=== PATIENT | female | born 1950 | race Caucasian/White ===

== ENCOUNTER 2018-04-11 06:25 | Inpatient (IN) ==
[2018-04-11] MEDS: Ondansetron 4 MG/2 ML VIAL IVP PRN ×2 (12:52→19:58)
[2018-04-11] MEDS ORDERED: *HR* Promethazine 25 MG/ML VIAL IM ONE (13:42)
[2018-04-11] MEDS ORDERED: Naloxone 0.4 MG/ML INJ IVP PRN (13:43)
--- NOTE | 2018-04-11 14:26 | Internal Med History&Physical ---
<Ramiro Anna P - Last Filed: 04/11/18 14:31> Date of Encounter: 04/11/18 Time of Encounter: 13:15 Internal Medicine - H&P: HPI Chief complaint: Nausea/Vomiting Admitted From: Home Plans for Post Hospital Care: Home History of present illness: Ms. Oates is a 67 year old female with past medical history significant for spina bifida, urostomy, hypertension, DVT, PE, and back surgery who presents for complaints of nausea and vomiting since 04/08/2018. She was transferred from [facility] secondary to nausea and vomiting with abnormal urinalysis and CT of abdomen/pelvis. Transfer documentation was reviewed. PO intake makes symptoms worse and NPO improves. No current treatment at home. Also complains of chills (reports highest home temperature "100 point something") and decreased urostomy output with foul smelling urine. Denies diarrhea, sick contacts, chest pain, shortness of breath, abdominal pain, or CVA tenderness. Follows regularly with Dr [facility]ino[facility] last visit was after ER discharge for acute cystitis in December 2017. [facility] Dr Palomino arranged additional follow up with [facility] for 04/19/2018. Last INR check was Thursday04/05/2018 and was therapeutic per patient. Has history of swelling of bilateral lower extremities but reports her compression stockings and medication continues to well control her edema. Past Med Surg Social Fam HX - Past Medical History Medical history: DVT, hypertension, pulmonary embolus, other Additional medical history: spina bifida, urostomy, phlebitis Psychiatric history: depression - Past Surgical History Additional surgical history: back surgery x3, urostomy placed - Social History Smoking Status: Never smoker Alcohol use: none Drug use: none Internal Medicine - H&P: Meds RX: Gabapentin [Neurontin] 300 mg PO TID 09/03/15 [History] Lotrel 5-40 mg Capsule 1 cap PO DAILY 04/12/18 [History] RX: Diphenoxylate/Atropine [Lomotil 2.5 mg/0.025 mg] 1 tab PO QID PRN 04/12/18 [History] RX: Ibuprofen [Motrin] 800 mg PO TID 04/12/18 [History] RX: Methocarbamol [Robaxin] 750 mg PO TID PRN 04/12/18 [History] RX: Warfarin [Coumadin] 2.5 mg PO 1800 04/12/18 [History] RX: Lisinopril [Zestril] 40 mg PO DAILY 30 Days #30 tablet 04/15/18 [Rx] RX: amLODIPine [Norvasc] 5 mg PO DAILY 30 Days #30 tablet 04/15/18 [Rx] RX: cephALEXin [Keflex] 500 mg PO BID 6 Days #12 capsule 04/16/18 [Rx] Sucralfate [Carafate] 1 gm PO QID 30 Days #120 b 04/16/18 [Rx] Sucralfate [Carafate] 1 gm PO QIDAC 30 Days #120 tablet 04/16/18 [Rx] Allergy/AdvReac Type Severity Reaction Status Date / Time Hydromorphone [From Dilaudid] AdvReac Vomiting Verified 09/03/15 15:27 Sulfa (Sulfonamide AdvReac Nausea Verified 09/03/15 15:27 Antibiotics) All Systems PM: A 10-system review of systems was performed and is negative for pertinent findings except as documented above in the HPI. - Constitutional Vitals: Temp Pulse Resp BP Pulse Ox 98.7 F 78 16 151/78 95 04/11/18 08:40 04/11/18 08:40 04/11/18 08:40 04/11/18 08:40 04/11/18 08:40 Exam: General: Alert and oriented. Skin:Normal color, no rash, no lesions. Urostomy noted to right abdomen. HEENT:Pupils equal, round and reactive. Cardiovascular:Normal S1 & S2, no rubs, murmurs or gallops. No JVD. Pulse regular. Lungs:Normal breath sounds, no wheezes or crackles. Abdomen:Soft, non-tender, no rigidity. Extremities:No deformity, no edema or tenderness, no joint swelling or clubbing. Compression stockings to bilateral lower extremities. Neurological:Normal cognition and motor skills. Pulses:Carotid and radial pulses normal +2. No CVA tenderness. Rest of the physical exam is non contributory. - Assessment and plan (1) Nausea & vomiting Status: Acute Assessment and plan: Zofran as needed. NPO except medications, progress diet as tolerated. MIVF ordered at 75ml/hr. Qualifiers: Vomiting type: unspecified Vomiting Intractability: non-intractable Qualified Code(s): R11.2 - Nausea with vomiting, unspecified (2) Urinary tract infection Status: Chronic Assessment and plan: Suspected acute on chronic UTI with large leukocyte esterase, positive nitrites, large blood, >100 WBC accompanied by reported decreased foul smelling output. Urine culture pending. Rocephin received in [facility] ER. Will continue same. Qualifiers: Urinary tract infection type: site unspecified Hematuria presence: with hematuria Qualified Code(s): N39.0 - Urinary tract infection, site not specified (3) Supratherapeutic INR Status: Acute Assessment and plan: Hold coumadin. Repeat labs in a.m. (4) Abnormal computed tomography of abdomen and pelvis Status: Acute Assessment and plan: CT abdomen/pelvis from [facility] shows possible pancreatitis but no abdominal pain or elevated lipase. Also reports bilateral hydronephrosis with two 2mm uretal stones on right side and 2cm right renal cyst. Previous CT from December 2017 shows bilateral nephrolithiasis and single 3mm right uretal stone, similar concernings for pancreatitis, and RLQ parastomal hernia. Urology consulted and advised of CT findings. Will see tomorrow morning. - Time Spent With Patient Total time spent is greater than 50% in coordination of care (as documented) at patient's floor/unit and/or counseling patient: - VTE Reasons for not Prescribing Prophylaxis: Not indicated-Anticoagulated or INR therapeutic <Ro Liu - Last Filed: 04/19/18 08:08> Internal Medicine - H&P: HPI History of present illness: Ms. Oates is a 67 year old female All Systems PM: A 10-system review of systems was performed and is negative for pertinent findings except as documented above in the HPI. - Constitutional Vitals: Temp Pulse Resp BP Pulse Ox 98.3 F 86 14 120/76 95 04/16/18 11:34 04/16/18 11:34 04/16/18 11:34 04/16/18 11:34 04/16/18 11:34 Internal Med - H&P Results - Labs CBC & Chem 7: 04/16/18 05:44 04/16/18 05:44 - Impressions ITS Impressions Abdomen MRI 04/15/18 11:39 IMPRESSION: 1. Technically limited secondary to artifact from patient's extensive spinal hardware and body habitus. 2. Mild bilateral hydronephrosis of unclear etiology. 3. Mild common bile duct dilatation up to 9 mm. No choledocholithiasis. Findings are favored to be related to post cholecystectomy state. 4. Right lower quadrant ostomy is partially visualized with parastomal hernia containing bowel. No obvious obstruction. D/ / 04/15/2018 17:50:38 Lorri Haro MD / Sangeetha Wells Interpreting Provider: Lorri Haro MD - Assessment and plan (1) Nausea & vomiting Status: Resolved Qualifiers: Vomiting type: unspecified Vomiting Intractability: non-intractable Qualified Code(s): R11.2 - Nausea with vomiting, unspecified (2) Urinary tract infection Status: Chronic Qualifiers: Urinary tract infection type: acute cystitis Hematuria presence: without hematuria Qualified Code(s): N30.00 - Acute cystitis without hematuria (3) Supratherapeutic INR Status: Resolved (4) Abnormal computed tomography of abdomen and pelvis Status: Acute (5) History of pulmonary embolism Status: Chronic (6) Spina bifida Status: Chronic Qualifiers: Spinal region: unspecified Presence of hydrocephalus: without hydrocephalus Qualified Code(s): Q05.9 - Spina bifida, unspecified (7) Hypertension Status: Chronic Qualifiers: Hypertension type: essential hypertension Qualified Code(s): I10 - Esse ntial (primary) hypertension (8) Hypokalemia Status: Resolved - Time Spent With Patient Total time spent is greater than 50% in coordination of care (as documented) at patient's floor/unit and/or counseling patient: - Attending Attestation I personally and independently interviewed and examined the patient , and I reviewed the patient's medical record . I am in agreement with proposed assessment and proposed treatment plan. I discussed my findings and recommendation with the patient and answer his questions. The patient's medical records were edited to accurately reflect this encounter.
[2018-04-11] MEDS ORDERED: *HR* Promethazine 25 MG/ML VIAL IVP ONE (14:27)
[2018-04-11] MEDS ORDERED: Acetaminophen 325 MG TABLET PO ONE (14:29)
[2018-04-11] MEDS: 0.9 % Sodium Chloride 1,000 ML IVC SCH (17:21)
[2018-04-12] MEDS: 0.9 % Sodium Chloride 1,000 ML IVC SCH ×3 (05:31→21:28)
[2018-04-12 06:53] LABS: Basophils % 0.5 %; Eosinophils % 0.3 %; Hematocrit 36.8 % (35.3-44.9); Hemoglobin 12.2 g/dL (11.5-15.4); Immature Granulocytes % 0.3 % (0-4); Lymphocytes # 1.3 K/mcL (0.6-4.6); Lymphocytes % 17.5 %; Mean Corpuscular HGB Conc 33.2 g/dL (31.6-35.5); Mean Corpuscular Hemoglobin 29.5 pg (28.0-33.3); Mean Corpuscular Volume 88.9 fL (83.0-100.0); Mean Platelet Volume 9.8 fL (9.4-12.4); Monocytes # 0.6 K/mcL (0.0-1.3); Monocytes % 8.5 %; Neutrophils # 5.4 K/mcL (1.6-8.9); Platelet Count 193 K/mcL (140-400); Red Blood Count 4.14 M/mcL (3.82-4.97); Red Cell Distribution Width 13.1 % (11.5-14.5); Segmented Neutrophils % 72.9 %
[2018-04-12 07:00] LABS: INR 3.3; Prothrombin Time 37.7 Seconds (9.4-12.1)
[2018-04-12 07:50] LABS: BUN/Creatinine Ratio 21 (6-26); Blood Urea Nitrogen 13 mg/dL (8-23); Calcium 8.5 mg/dL (8.6-10.3); Carbon Dioxide 22 mEq/L (23-29); Chloride 109 mEq/L (98-107); Glucose 91 mg/dL (70-105); Osmolality,Calculated 294 (280-300); Potassium 3.1 mEq/L (3.5-5.1); Sodium 142 mEq/L (136-145); eGFR For Non-African Americans > 60 (> 60)
[2018-04-12] MEDS: Ondansetron 4 MG/2 ML VIAL IVP PRN (08:54)
--- NOTE | 2018-04-12 09:14 | Internal Med Progress Note ---
Hospitalist Progress Note - Encounter Date of Encounter: 04/12/18 Time of Encounter: 09:07 - Subjective Interval History: Patient with history of spina bifida, urostomy, hypertension, DVT and pulmonary embolism patient usually a follow-up with Dr. Palomino the urologist. Patient wasl transfer from [facility] due to nausea and vomiting since worse with the by mouth intake also has decrease urine output from the urostomy with smelly urine consistent with a UTI patient also has some mild epigastric pain has CT of the abdomen suggestive of pancreatitis but l iipase and amylase was normal also the CT scan shows a bilateral hydronephrosis with a kidney stone patient awaiting urology evaluation today 04/12 fu follow-up evaluation today patient nausea and vomiting has subsided with Zofran no fever or chills white count is normal awaiting urology consult evaluation. Patient says in the past she was told she has pancreatitis but follow-up did not comfirm pancreatitis in the past as well - Exam Vitals: Temp Pulse Resp BP Pulse Ox 98.1 F 74 14 116/67 93 04/12/18 05:15 04/12/18 05:15 04/12/18 05:15 04/12/18 05:15 04/12/18 05:15 Exam: General: Alert and oriented. Skin:Normal color, no rash, no lesions. Urostomy noted to right abdomen. HEENT:Pupils equal, round and reactive. Cardiovascular:Normal S1 & S2, no rubs, murmurs or gallops. No JVD. Pulse regular. Lungs:Normal breath sounds, no wheezes or crackles. Abdomen:Soft, non-tender, no rigidity. Extremities:No deformity, no edema or tenderness, no joint swelling or clubbing. Compression stockings to bilateral lower extremities. Neurological:Normal cognition and motor skills. Pulses:Carotid and radial pulses normal +2. No CVA tenderness. Rest of the physical exam is non contributory. - Assessment and Plan (1) Nausea & vomiting Current Visit: Yes Status: Acute Assessment and Plan: Nausea and vomiting since has subsided date with the Zofran T of abdomen suggestive of pancreatitis that normal lipase and amylase we will repeat lipase today stat and consult GI for further evaluation May need to consider EGD (2) Urinary tract infection Current Visit: Yes Status: Chronic Assessment and Plan: Patient started on Rocephin cultures pending denies any fever or chills (3) Supratherapeutic INR Current Visit: Yes Status: Acute Assessment and Plan: INR today 3.3 will hold l Coumadin for today as well (4) Abnormal computed tomography of abdomen and pelvis Current Visit: Yes Status: Acute Assessment and Plan: CT of the abdomen suggestive of pancreatitis s which has been evaluated in the past Recheck lipase in their consult GI for further evaluation (5) PE (pulmonary thromboembolism) Current Visit: No Status: Chronic Assessment and Plan: Patient on Coumadin - Time Spent with Patient Total time spent is greater than 50% in coordination of care (as documented) at patient's floor/unit and/or counseling patient: Internal Medicine: Result - Labs CBC & Chem 7: 04/12/18 06:14 04/12/18 06:14 Labs: Short CBC 04/12/18 Range/Units 06:14 WBC 7.4 (4.3-11.1) K/mcL Hgb 12.2 (11.5-15.4) g/dL Hct 36.8 (35.3-44.9) % Plt Count 193 (140-400) K/mcL Neutrophils # 5.4 (1.6-8.9) K/mcL BMP 04/12/18 06:14 Sodium 142 Potassium 3.1 L Chloride 109 H Carbon Dioxide 22 L BUN 13 Creatinine 0.62 Glucose 91 Calcium 8.5 L - ABG Interpretation ABG results: PT/INR, D-dimer PT 37.7 Seconds (9.4-12.1) H 04/12/18 06:14 - VTE Reasons for not Prescribing Prophylaxis: Not indicated-Anticoagulated or INR therapeutic Consult Discharge Plan - Plan Referrals: Cecil Cancino DO [Primary Care Provider] - (1) Nausea & vomiting Qualifiers: Vomiting type: unspecified Vomiting Intractability: non-intractable Qualified Code(s): R11.2 - Nausea with vomiting, unspecified (2) Urinary tract infection Qualifiers: Urinary tract infection type: site unspecified Hematuria presence: with hematuria Qualified Code(s): N39.0 - Urinary tract infection, site not specified; R31.9 - Hematuria, unspecified
[2018-04-12 09:21] LABS: Lipase 7 Units/L (11-82)
[2018-04-12] MEDS: cefTRIAXone 1,000 MG in Water for inj. (sterile) 20 ML 10 ML IVP SCH (09:45)
[2018-04-12] MEDS: *HR* Promethazine 25 MG/ML VIAL IVP PRN ×2 (13:36→21:49)
[2018-04-12] MEDS ORDERED: 0.9 % Sodium Chloride 1,000 ML ONE (18:55)
--- NOTE | 2018-04-12 19:15 | Urology Progress Note ---
Date of Encounter: 04/12/18 Time of Encounter: 19:13 - Assessment and Plan (1) History of urinary diversion procedure Current Visit: Yes Status: Chronic Assessment and plan: Status post diversion for spina bifida with neurogenic bladder. The patient's urostomy is complicated by a large parastomal hernia and questions of potential partial obstruction of the right distal ureter. Patient has been referred by my partner to [facility] for evaluation and potential surgical address of ileoureteral anastomosis and parastomal hernia if deemed necessary. Plan: Keep [facility] urology referral appointment scheduled for next Thursday. (2) Hydronephrosis Current Visit: Yes Status: Chronic Assessment and plan: CT and loopogram images reviewed. Patient with moderate right hydro-and mild left [place]. It is unclear whether this is normal hydro-post incontinent urinary diversion or if the patient has some degree of obstruction on the right side. No indications for urgent urologic intervention. Plan: Keep [facility] referral made by Dr. Palomino for urologic evaluation as scheduled for thursday. Qualifiers: Qualified Code(s): N13.30 - Unspecified hydronephrosis (3) Urinary tract infection Current Visit: Yes Status: Chronic Assessment and plan: Complicated by urinary diversion. Patient is not toxic. No need for urgent urologic intervention. Plan: Antibiotic adjustment per culture result. Keep second opinion urology appointment with [facility] as scheduled for thursday. Follow-up with Dr. Palomino post [facility] second opinion. Qualifiers: Urinary tract infection type: acute cystitis Hematuria presence: without hematuria Qualified Code(s): N30.00 - Acute cystitis without hematuria Progress Note Subjective: still having pain, nausea, vomiting Objective Initial Vital Signs Temp Pulse Resp BP Pulse Ox 98.7 F 78 16 151/78 95 04/11/18 08:40 04/11/18 08:40 04/11/18 08:40 04/11/18 08:40 04/11/18 08:40 - General physical appearance Present: well developed, well nourished, no distress - Respiratory Present: normal respiratory effort - Abdomen Present: soft, non tender - Integumentary Present: no rash, no abnormal pigmentation - Musculoskeletal Present: normal gait, normal posture - Psychiatric Present: oriented to time, oriented to person, oriented to place - Labs 04/12/18 06:14 04/12/18 06:14 Diabetes panel 04/12/18 Range/Units 06:14 Sodium 142 (136-145) mEq/L Potassium 3.1 L (3.5-5.1) mEq/L Chloride 109 H (98-107) mEq/L Carbon Dioxide 22 L (23-29) mEq/L BUN 13 (8-23) mg/dL Creatinine 0.62 (0.60-1.20) mg/dL Glucose 91 (70-105) mg/dL Calcium 8.5 L (8.6-10.3) mg/dL Calcium panel 04/12/18 Range/Units 06:14 Calcium 8.5 L (8.6-10.3) mg/dL Pituitary panel 04/12/18 Range/Units 06:14 Sodium 142 (136-145) mEq/L Potassium 3.1 L (3.5-5.1) mEq/L Chloride 109 H (98-107) mEq/L Carbon Dioxide 22 L (23-29) mEq/L BUN 13 (8-23) mg/dL Creatinine 0.62 (0.60-1.20) mg/dL Glucose 91 (70-105) mg/dL Calcium 8.5 L (8.6-10.3) mg/dL Adrenal panel 04/12/18 Range/Units 06:14 Sodium 142 (136-145) mEq/L Potassium 3.1 L (3.5-5.1) mEq/L Chloride 109 H (98-107) mEq/L Carbon Dioxide 22 L (23-29) mEq/L BUN 13 (8-23) mg/dL Creatinine 0.62 (0.60-1.20) mg/dL Glucose 91 (70-105) mg/dL Calcium 8.5 L (8.6-10.3) mg/dL - Imaging CT scan - abdomen: image reviewed CT scan - pelvis: image reviewed - VTE Reasons for not Prescribing Prophylaxis: Not indicated-Anticoagulated or INR therapeutic Consult Discharge Plan - Plan Referrals: Cecil Cancino DO [Primary Care Provider] -
[2018-04-13] MEDS: Ondansetron 4 MG/2 ML VIAL IVP PRN (02:11)
[2018-04-13] MEDS: Acetaminophen 325 MG TABLET PO PRN (02:11)
[2018-04-13] MEDS: cefTRIAXone 1,000 MG in Water for inj. (sterile) 20 ML 10 ML IVP SCH (08:13)
[2018-04-13] MEDS: 0.9 % Sodium Chloride 1,000 ML IVC SCH (08:16)
[2018-04-13 08:27] LABS: BUN/Creatinine Ratio 22 (6-26); Blood Urea Nitrogen 13 mg/dL (8-23); Calcium 8.7 mg/dL (8.6-10.3); Carbon Dioxide 23 mEq/L (23-29); Chloride 107 mEq/L (98-107); Glucose 95 mg/dL (70-105); Osmolality,Calculated 288 (280-300); Potassium 3.3 mEq/L (3.5-5.1); Sodium 139 mEq/L (136-145); eGFR For Non-African Americans > 60 (> 60)
--- NOTE | 2018-04-13 08:27 | Internal Med Progress Note ---
<El Mcrae S - Last Filed: 04/13/18 11:00> Hospitalist Progress Note - Encounter Date of Encounter: 04/13/18 Time of Encounter: 08:23 - Subjective Interval History: Pt presented to [facility] ER and was transferred here for c/o nausea and vomiting since 04/08 -states that she had abd pain associated with dry heaving - had poor PO intake, was unable to keep anything down Of note the pt has a hx of spina bifida and had sx for neurogenic bladder -follows up with Dr Palomino outmora and has [facility] apt on Thursday Today the pt has no new concerns. She is still nauseated and feels like she will throw up if she eats/drinks anything. She denies abd pain, diarrhea, chest pain, or SOB. - Exam Vitals: Temp Pulse Resp BP Pulse Ox 97.8 F 95 15 138/73 91 04/13/18 03:19 04/13/18 03:19 04/13/18 03:19 04/13/18 03:19 04/13/18 03:19 Exam: General: Alert and oriented. HEENT: Normocephalic atraumatic , mucous membranes moist Cardiovascular: Normal S1 & S2, no rubs, murmurs or gallops. No JVD. Pulse regular. Lungs:Normal breath sounds, no wheezes or crackles. Abdomen:Soft, non-tender, no rigidity. Urostomy on the right abdomen. Extremities: No deformity, no edema or tenderness, no joint swelling or clubbing. Compression stockings to bilateral lower extremities. Skin: Normal color, no rash, no lesions. - Assessment and Plan (1) Nausea & vomiting Current Visit: Yes Status: Acute Assessment and Plan: Pt presented to [facility] ER and was transferred here for c/o nausea and vomiting since 04/08 -states that she had abd pain associated with dry heaving - had poor PO intake, was unable to keep anything down Lipase 7, pancreatitis unlikely CT in December showed stranding within the right upper quadrant adjacent to the pancreatic head and second portion of the duodenum, which could reflect acute pancreatitis versus duodenitis/peptic ulcer disease Plan: - zofran and phenergan prn nausea - begin CLD starting today , progress diet as tolerated - 75cc/hr 0.9% NS - plan to d/c pending EGD and if pt can tolerate PO intake - GI consulted, they plan to EGD her tomorrow NPO at midnight PT/INR in the morning (2) Urinary tract infection Current Visit: Yes Status: Chronic Assessment and Plan: Suspected acute on chronic UTI UA showed leukocyte esterase, (+) nitrites, (+) blood, TNTC WBC, 15-30 RBC Plan: - continue rocephin day 2 - urine cx pending - dispo: d/c pending EGD and tolerating PO intake (3) Supratherapeutic INR Current Visit: Yes Status: Acute Assessment and Plan: PT 37.7, INR 3.3 Plan: - coumadin held - morning labs pending (4) Abnormal computed tomography of abdomen and pelvis Current Visit: Yes Status: Acute Assessment and Plan: CT abdomen/pelvis from [facility] showed - possible pancreatitis, pt denies abd pain and lipase is 7 - bilat hydronephrosis , 2mm ureteral stones on right side and 2cm right renal cyst CT 12/2017 - showed bilat nephrolithiasis - single 3mm right ureteral stone - RLQ parastomal hernia Plan: - urology following, no urgent intervention required - pt has urology outpt follow up at [facility] on Thursday (5) History of pulmonary embolism Current Visit: No Status: Chronic Assessment and Plan: Chronic On coumadin, but currently held 2/2 supratheraputic INR (6) Spina bifida Current Visit: No Status: Chronic Assessment and Plan: Chronic (7) Hypertension Current Visit: No Status: Chronic Assessment and Plan: On lotrel BP 138/73 -well controlled (8) Hypokalemia Current Visit: Yes Status: Acute Assessment and Plan: Potassium 3.1 on admission, likely secondary to vomiting - replaced with PO K chloride - check electrolytes in AM - Time Spent with Patient Total time spent is greater than 50% in coordination of care (as documented) at patient's floor/unit and/or counseling patient: less than 15 minutes Plan of Care Discussed with: patient Internal Medicine: Result - Labs CBC & Chem 7: 04/12/18 06:14 04/13/18 07:51 Labs: BMP 04/12/18 06:14 Sodium 142 Potassium 3.1 L Chloride 109 H Carbon Dioxide 22 L BUN 13 Creatinine 0.62 Glucose 91 Calcium 8.5 L - ABG Interpretation ABG results: PT/INR, D-dimer PT 37.7 Seconds (9.4-12.1) H 04/12/18 06:14 - VTE Reasons for not Prescribing Prophylaxis: Not indicated-Anticoagulated or INR therapeutic Consult Discharge Plan - Plan Referrals: Cecil Cancino DO [Primary Care Provider] - <Pavel Jj - Last Filed: 04/13/18 16:58> Hospitalist Progress Note - Exam Vitals: Temp Pulse Resp BP Pulse Ox 98.5 F 77 14 105/68 94 04/13/18 15:00 04/13/18 15:00 04/13/18 15:00 04/13/18 15:00 04/13/18 15:00 - Assessment and Plan (1) Nausea & vomiting Current Visit: Yes Status: Acute (2) Urinary tract infection Current Visit: Yes Status: Chronic (3) Supratherapeutic INR Current Visit: Yes Status: Acute (4) Abnormal computed tomography of abdomen and pelvis Current Visit: Yes Status: Acute (5) History of pulmonary embolism Current Visit: No Status: Chronic (6) Spina bifida Current Visit: No Status: Chronic (7) Hypertension Current Visit: No Status: Chronic (8) Hypokalemia Current Visit: Yes Status: Acute - Time Spent with Patient Total time spent is greater than 50% in coordination of care (as documented) at patient's floor/unit and/or counseling patient: Internal Medicine: Result - Labs CBC & Chem 7: 04/12/18 06:14 04/13/18 12:11 Labs: BMP 04/13/18 04/13/18 07:51 12:11 Sodium 139 Potassium 3.3 L 3.0 L Chloride 107 Carbon Dioxide 23 BUN 13 Creatinine 0.58 L Glucose 95 Calcium 8.7 - ABG Interpretation ABG results: PT/INR, D-dimer PT 27.4 Seconds (9.4-12.1) H 04/13/18 12:11 - Attending Attestation I examined this patient and my medical decision-making was reviewed with the Resident Physician. I agree with the documented findings, disposition and treatment plan as described except to the extent set forth below. Plan for EGD tomorrow. Repeat INR 2.4 today at 12:00. Will repeat INR tonight to see if patient needs reversal of INR or not to get INR down prior to EGD. With history of DVT/PE will try to avoid giving Vit K if possible. <El Mcrae - Last Filed: 04/13/18 11:00> (1) Nausea & vomiting Qualifiers: Vomiting type: unspecified Vomiting Intractability: non-intractable Qualified Code(s): R11.2 - Nausea with vomiting, unspecified (2) Urinary tract infection Qualifiers: Urinary tract infection type: acute cystitis Hematuria presence: without hematuria Qualified Code(s): N30.00 - Acute cystitis without hematuria (6) Spina bifida Qualifiers: Spinal region: unspecified Presence of hydrocephalus: without hydrocephalus Qualified Code(s): Q05.9 - Spina bifida, unspecified (7) Hypertension Qualifiers: Hypertension type: essential hypertension Qualified Code(s): I10 - Essential (primary) hypertension <Pavel Jj - Last Filed: 04/13/18 16:58> (1) Nausea & vomiting Qualifiers: Vomiting type: unspecified Vomiting Intractability: non-intractable Qualifi ed Code(s): R11.2 - Nausea with vomiting, unspecified (2) Urinary tract infection Qualifiers: Urinary tract infection type: acute cystitis Hematuria presence: without hematuria Qualified Code(s): N30.00 - Acute cystitis without hematuria (6) Spina bifida Qualifiers: Spinal region: unspecified Presence of hydrocephalus: without hydrocephalus Qualified Code(s): Q05.9 - Spina bifida, unspecified (7) Hypertension Qualifiers: Hypertension type: essential hypertension Qualified Code(s): I10 - Essential (primary) hypertension
[2018-04-13] MEDS ORDERED: Diphenoxylate/Atropine 1 TAB TABLET PO PRN (11:13)
--- NOTE | 2018-04-13 11:24 | Gastroenterology Consult Note ---
<YarbroughJose Luis Kenisha - Last Filed: 04/13/18 10:24> Date of Encounter: 04/13/18 Time of Encounter: 09:50 - Assessment and plan (1) Nausea & vomiting Current Visit: Yes Status: Acute Assessment and plan: CT A/P at [facility] with possible pancreatitis. Lipase 7 on admission here. Patient presented to the ED in December [address] A/P at that time showed stranding within the right upper quadrant adjacent to the pancreatic head and second portion of the duodenum, which could reflect acute pancreatitis versus duodenitis/peptic ulcer disease. 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 Plan for EGD tomorrow to rule out esophagitis, gastritis, duodenitis, PUD. Continue clear liquid diet today. NPO at midnight. Continue antiemetics. Qualifiers: Vomiting type: unspecified Vomiting Intractability: non-intractable Qualified Code(s): R11.2 - Nausea with vomiting, unspecified (2) Supratherapeutic INR Current Visit: Yes Status: Acute Assessment and plan: INR 3.3 yesterday. Check PT/INR today. Will need to INR less than 1.5 for EGD tomorrow. - Time Spent With Patient Total time spent is greater than 50% in coordination of care (as documented) at patient's floor/unit and/or counseling patient: GI History of Present Illness - Data of Consult Patient: new to practice Consult date: 04/13/18 Requesting Physician: Gideon Arnett MD - Consult Narrative Reason for consult: Nausea, vomiting, ?pancreatitis History of present illness: Ms. Oates is a 67 year old female with PMHx of DVT, HTN, PE, spina bifida, urostomy who presented to [facility] with complaints of nausea and vomiting since 04/08. She was transferred from [facility] with nausea, vomiting, abnormal urinalysis, and CT A/P. Oral intake worsens symptoms, and NPO improves. She denies chills, chest pain, shortness of breath, abdominal pain, diarrhea. CT A/P at [facility] showed possible pancreatitis, but she denies any abdominal pain and li pase was 7 on admission here. In December the patient had abdominal pain and CT A/P on 01/19/2018 showed stranding within the right upper quadrant adjacent to the pancreatic head and second portion of the duodenum, which could reflect acute pancreatitis in the appropriate clinical setting versus duodenitis/peptic ulcer disease. 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 Procedures: None NSAIDs: Motrin Anticoagulation: Coumadin Past Med Surg Social Fam HX - Past Medical History Medical history: DVT, hypertension, pulmonary embolus, other Additional medical history: spina bifida, urostomy, phlebitis Psychiatric history: depression - Past Surgical History Additional surgical history: back surgery x3, urostomy placed - Social History Smoking Status: Never smoker Alcohol use: none Drug use: none - Gastrointestinal Gastrointestinal: Present: as per HPI - Constitutional Constitutional: as per HPI - EENT Eyes: as per HPI Ears: Present: as per HPI Nose, mouth and throat: Present: as per HPI - Cardiovascular Cardiovascular ROS: Present: as per HPI - Respiratory Respiratory IM: Present: as per HPI - Genitourinary Genitourinary: Absent: change in color, Urinary frequency - Neurological ROS Neurological GI: Present: as per HPI - Hematologic/Lymphatic Hematologic/Lymphatic pediatric: Present: as per HPI - Musculoskeletal Musculoskeletal ROS GI: Present: as per HPI - Integumentary Integumentary GI: Present: as per HPI - Psychiatric ROS Psychiatric GI: Present: as per HPI - Endocrine Endocrine IM: Present: as per HPI - Constitutional Vitals: Temp Pulse Resp BP Pulse Ox 98.2 F 83 14 158/69 95 04/13/18 08:40 04/13/18 08:40 04/13/18 08:40 04/13/18 08:40 04/13/18 08:40 General appearance: Present: cooperative, A&O X 3, no acute distress, answers questions appropriately - Head Head exam: Present: atraumatic, normocephalic - Eye Eye exam: Present: normal appearance, sclera anicteric - ENT ENT exam: Present: mucous membranes moist - Neck Neck exam general surgery: Present: normal inspection, trachea midline - Respiratory Respiratory exam: Present: CTAB. Absent: rales, rhonchi - Cardiovascular Cardiovascular exam: Present: RRR, +S1, +S2 - GI/Abdominal GI/Abdominal exam: Present: soft, no peritoneal signs. Absent: distended, firm, guarding, tenderness - Rectal Rectal exam: Present: deferred - Extremities Exam Extremities exam: Present: warm - Neurological Exam Neurological exam: Present: no focal deficits - Psychiatric Psychiatric exam: Present: normal affect, normal mood - Skin Skin exam: Present: dry, intact, normal color, warm Results - Labs CBC & Chem 7: 04/12/18 06:14 04/13/18 07:51 Labs: Last Result Calcium 8.7 mg/dL (8.6-10.3) 04/13/18 07:51 Entire Visit Hgb 12.2 g/dL (11.5-15.4) 04/12/18 06:14 Hct 36.8 % (35.3-44.9) 04/12/18 06:14 PT 37.7 Seconds (9.4-12.1) H 04/12/18 06:14 Lipase 7 Units/L (11-82) L 04/12/18 06:14 - ABG ABG results: PT/INR, D-dimer PT 37.7 Seconds (9.4-12.1) H 04/12/18 06:14 Consult Discharge Plan - Plan Referrals: Cecil Cancino DO [Primary Care Provider] - Prescriptions: RX: amLODIPine [Norvasc] 5 mg PO DAILY 30 Days #30 tablet RX: cephALEXin [Keflex] 500 mg PO BID 6 Days #12 capsule RX: Lisinopril [Zestril] 40 mg PO DAILY 30 Days #30 tablet <Fahad Talamantes - Last Filed: 04/16/18 10:07> - Time Spent With Patient Total time spent is greater than 50% in coordination of care (as documented) at patient's floor/unit and/or counseling patient: GI History of Present Illness - Data of Consult Requesting Physician: Pavel Jj MD - Consult Narrative History of present illness: Ms. Oates is a 67 year old female - Constitutional Vitals: Temp Pulse Resp BP Pulse Ox 98.1 F 84 16 119/73 94 04/16/18 06:38 04/16/18 06:38 04/16/18 06:38 04/16/18 06:38 04/16/18 06:38 Results - Labs CBC & Chem 7: 04/16/18 05:44 04/16/18 05:44 Labs: Last Result Calcium 9.3 mg/dL (8.6-10.3) 04/16/18 05:44 Entire Visit Hgb 12.7 g/dL (11.5-15.4) 04/16/18 05:44 Hct 39.1 % (35.3-44.9) 04/16/18 05:44 PT 19.4 Seconds (9.4-12.1) H 04/15/18 03:12 Total Bilirubin 0.5 mg/dL (0.3-1.0) 04/16/18 05:44 AST 11 Units/L (13-39) L 04/16/18 05:44 ALT 7 Units/L (7-52) 04/16/18 05:44 Lipase 7 Units/L (11-82) L 04/12/18 06:14 - ABG ABG results: PT/INR, D-dimer PT 19.4 Seconds (9.4-12.1) H 04/15/18 03:12 - Impressions Impressions Abdomen MRI 04/15/18 11:39 IMPRESSION: 1. Technically limited secondary to artifact from patient's extensive spinal hardware and body habitus. 2. Mild bilateral hydronephrosis of unclear etiology. 3. Mild common bile duct dilatation up to 9 mm. No choledocholithiasis. Findings are favored to be related to post cholecystectomy state. 4. Right lower quadrant ostomy is partially visualized with parastomal hernia containing bowel. No obvious obstruction. D/ / 04/15/2018 17:50:38 Lorri Haro MD / Sangeetha Wells Interpreting Provider: Lorri Haro MD - Attending Attestation I examined this patient and my medical decision-making was reviewed with the Resident Physician. I agree with the documented findings, disposition and treatment plan as described except to the extent set forth below.
[2018-04-13] MEDS: Gabapentin 300 MG CAPSULE PO SCH ×3 (11:56→21:11)
[2018-04-13 12:41] LABS: INR 2.4; Prothrombin Time 27.4 Seconds (9.4-12.1)
[2018-04-13] MEDS: Ibuprofen 800 MG TABLET PO SCH ×2 (14:50→21:11)
[2018-04-13 19:14] LABS: INR 2.5
[2018-04-14 05:33] LABS: Basophils % 0.3 %; Eosinophils # 0.2 K/mcL (0.0-0.6); Eosinophils % 2.6 %; Hematocrit 37.1 % (35.3-44.9); Hemoglobin 12.2 g/dL (11.5-15.4); Immature Granulocytes % 0.3 % (0-4); Lymphocytes # 1.3 K/mcL (0.6-4.6); Lymphocytes % 20.3 %; Mean Corpuscular HGB Conc 32.9 g/dL (31.6-35.5); Mean Corpuscular Hemoglobin 29.7 pg (28.0-33.3); Mean Corpuscular Volume 90.3 fL (83.0-100.0); Mean Platelet Volume 10.2 fL (9.4-12.4); Monocytes # 0.6 K/mcL (0.0-1.3); Monocytes % 9.6 %; Neutrophils # 4.4 K/mcL (1.6-8.9); Platelet Count 203 K/mcL (140-400); Red Blood Count 4.11 M/mcL (3.82-4.97); Red Cell Distribution Width 13.2 % (11.5-14.5); Segmented Neutrophils % 66.9 %
[2018-04-14 05:43] LABS: INR 2.1; Prothrombin Time 23.5 Seconds (9.4-12.1)
[2018-04-14 05:56] LABS: BUN/Creatinine Ratio 14 (6-26); Blood Urea Nitrogen 9 mg/dL (8-23); Calcium 8.7 mg/dL (8.6-10.3); Carbon Dioxide 24 mEq/L (23-29); Chloride 111 mEq/L (98-107); Glucose 100 mg/dL (70-105); Osmolality,Calculated 289 (280-300); Potassium 4.2 mEq/L (3.5-5.1); Sodium 140 mEq/L (136-145); eGFR For Non-African Americans > 60 (> 60)
[2018-04-14] MEDS: Ibuprofen 800 MG TABLET PO SCH (08:45)
[2018-04-14] MEDS: cefTRIAXone 1,000 MG in Water for inj. (sterile) 20 ML 10 ML IVP SCH (08:45)
[2018-04-14] MEDS: Gabapentin 300 MG CAPSULE PO SCH ×3 (08:45→21:13)
[2018-04-14] MEDS: Lisinopril 20 MG TABLET PO SCH (08:45)
[2018-04-14] MEDS: amLODIPine 5 MG TABLET PO SCH (08:45)
[2018-04-14] MEDS ORDERED: LOTREL PO SCH (09:00)
--- NOTE | 2018-04-14 09:20 | Internal Med Progress Note ---
<El Mcrae S - Last Filed: 04/14/18 12:55> Hospitalist Progress Note - Encounter Date of Encounter: 04/14/18 Time of Encounter: 09:17 - Subjective Interval History: Pt presented to [facility] ER and was transferred here for c/o nausea and vomiting since 04/08 -states that she had abd pain associated with dry heaving - had poor PO intake, was unable to keep anything down Of note the pt has a hx of spina bifida and had sx for neurogenic bladder -follows up with Dr Palomino outmora and has [facility] apt on Thursday Today the pt has no new concerns. She is still somewhat nauseated but states it has improved immensely. She denies abd pain, diarrhea, chest pain, or SOB. She is getting an EGD today. - Exam Vitals: Temp Pulse Resp BP Pulse Ox 98.0 F 77 18 118/71 96 04/14/18 07:11 04/14/18 07:11 04/14/18 07:11 04/14/18 07:11 04/14/18 07:11 Exam: General: Alert and oriented. HEENT: Normocephalic atraumatic , mucous membranes moist Cardiovascular: Normal S1 & S2, no rubs, murmurs or gallops. No JVD. Pulse regular. Lungs:Normal breath sounds, no wheezes or crackles. Abdomen:Soft, non-tender, no rigidity. Urostomy on the right abdomen. Extremities: No deformity, no edema or tenderness, no joint swelling or clubbing. Compression stockings to bilateral lower extremities. Skin: Normal color, no rash, no lesions. - Assessment and Plan (1) Nausea & vomiting Current Visit: Yes Status: Acute Assessment and Plan: Pt presented to [facility] ER and was transferred here for c/o nausea and vomiting since 04/08 -states that she had abd pain associated with dry heaving - had poor PO intake, was unable to keep anything down Lipase 7, pancreatitis unlikely CT in December showed stranding within the right upper quadrant adjacent to the pancreatic head and second portion of the duodenum, which could reflect acute pancreatitis versus duodenitis/peptic ulcer disease PT 23.5, INR 2.1 Plan: - zofran and phenergan prn nausea - begin CLD starting today , progress diet as tolerated - discontinued 75cc/hr 0.9% NS - plan to d/c pending EGD and if pt can tolerate PO intake - GI consulted, they plan to EGD her today NPO currently, CLD post EGD today at 1230 (2) Urinary tract infection Current Visit: Yes Status: Chronic Assessment and Plan: Suspected acute on chronic UTI UA showed leukocyte esterase, (+) nitrites, (+) blood, TNTC WBC, 15-30 RBC Plan: - continue rocephin day 3 - urine cx pending - dispo: d/c pending EGD and tolerating PO intake (3) Supratherapeutic INR Current Visit: Yes Status: Acute Assessment and Plan: PT 37.7, INR 3.3 on admission 04/14: INR 2.1, PT 23.5 Plan: - coumadin held - repeat PT/INR in AM (4) Abnormal computed tomography of abdomen and pelvis Current Visit: Yes Status: Acute Assessment and Plan: CT abdomen/pelvis from [facility] showed - possible pancreatitis, pt denies abd pain and lipase is 7 - bilat hydronephrosis , 2mm ureteral stones on right side and 2cm right renal cyst CT 12/2017 - showed bilat nephrolithiasis - single 3mm right ureteral stone - RLQ parastomal hernia Plan: - urology following, no urgent intervention required - pt has urology outpt follow up at [facility] on Thursday (5) History of pulmonary embolism Current Visit: No Status: Chronic Assessment and Plan: Chronic On coumadin, but currently held 2/2 supratheraputic INR (6) Spina bifida Current Visit: No Status: Chronic Assessment and Plan: Chronic (7) Hypertension Current Visit: No Status: Chronic Assessment and Plan: On lotrel BP 118/71 -well controlled (8) Hypokalemia Current Visit: Yes Status: Acute Assessment and Plan: Potassium 3.1 on admission, likely secondary to vomiting - replaced with PO K chloride - check electrolytes in AM, was 4.2 on 04/14 - Time Spent with Patient Total time spent is greater than 50% in coordination of care (as documented) at patient's floor/unit and/or counseling patient: less than 15 minutes Plan of Care Discussed with: patient Internal Medicine: Result - Labs CBC & Chem 7: 04/14/18 05:11 04/14/18 05:11 Labs: Short CBC 04/14/18 Range/Units 05:11 WBC 6.6 (4.3-11.1) K/mcL Hgb 12.2 (11.5-15.4) g/dL Hct 37.1 (35.3-44.9) % Plt Count 203 (140-400) K/mcL Neutrophils # 4.4 (1.6-8.9) K/mcL BMP 04/13/18 04/14/18 12:11 05:11 Sodium 140 Potassium 3.0 L 4.2 D Chloride 111 H Carbon Dioxide 24 BUN 9 Creatinine 0.65 Glucose 100 Calcium 8.7 - ABG Interpretation ABG results: PT/INR, D-dimer PT 23.5 Seconds (9.4-12.1) H 04/14/18 05:11 - VTE Reasons for not Prescribing Prophylaxis: Not indicated-Anticoagulated or INR the rapeutic Consult Discharge Plan - Plan Referrals: Cecil Cancino DO [Primary Care Provider] - <Pavel Jj - Last Filed: 04/14/18 14:17> Hospitalist Progress Note - Exam Vitals: Temp Pulse Resp BP Pulse Ox 97.9 F 83 18 150/64 93 04/14/18 12:40 04/14/18 12:40 04/14/18 12:40 04/14/18 12:40 04/14/18 12:40 - Assessment and Plan (1) Nausea & vomiting Current Visit: Yes Status: Acute (2) Urinary tract infection Current Visit: Yes Status: Chronic (3) Supratherapeutic INR Current Visit: Yes Status: Acute (4) Abnormal computed tomography of abdomen and pelvis Current Visit: Yes Status: Acute (5) History of pulmonary embolism Current Visit: No Status: Chronic (6) Spina bifida Current Visit: No Status: Chronic (7) Hypertension Current Visit: No Status: Chronic (8) Hypokalemia Current Visit: Yes Status: Acute - Time Spent with Patient Total time spent is greater than 50% in coordination of care (as documented) at patient's floor/unit and/or counseling patient: Internal Medicine: Result - Labs CBC & Chem 7: 04/14/18 05:11 04/14/18 05:11 Labs: Short CBC 04/14/18 Range/Units 05:11 WBC 6.6 (4.3-11.1) K/mcL Hgb 12.2 (11.5-15.4) g/dL Hct 37.1 (35.3-44.9) % Plt Count 203 (140-400) K/mcL Neutrophils # 4.4 (1.6-8.9) K/mcL BMP 04/14/18 05:11 Sodium 140 Potassium 4.2 D Chloride 111 H Carbon Dioxide 24 BUN 9 Creatinine 0.65 Glucose 100 Calcium 8.7 - ABG Interpretation ABG results: PT/INR, D-dimer PT 23.5 Seconds (9.4-12.1) H 04/14/18 05:11 - Attending Attestation I examined this patient and my medical decision-making was reviewed with the Resident Physician. I agree with the documented findings, disposition and treatment plan as described except to the extent set forth below. <El Mcrae - Last Filed: 04/14/18 12:55> (1) Nausea & vomiting Qualifiers: Vomiting type: unspecified Vomiting Intractability: non-intractable Qualified Code(s): R11.2 - Nausea with vomiting, unspecified (2) Urinary tract infection Qualifiers: Urinary tract infection type: acute cystitis Hematuria presence: without hematuria Qualified Code(s): N30.00 - Acute cystitis without hematuria (6) Spina bifida Qualifiers: Spinal region: unspecified Presence of hydrocephalus: without hydrocephalus Qualified Code(s): Q05.9 - Spina bifida, unspecified (7) Hypertension Qualifiers: Hypertension type: essential hypertension Qualified Code(s): I10 - Essential (primary) hypertension <Pavel Jj - Last Filed: 04/14/18 14:17> (1) Nausea & vomiting Qualifiers: Vomiting type: unspecified Vomiting Intractability: non-intractable Qualified Code(s): R11.2 - Nausea with vomiting, unspecified (2) Urinary tract infection Qualifiers: Urinary tract infection type: acute cystitis Hematuria presence: without hematuria Qualified Code(s): N30.00 - Acute cystitis without hematuria (6) Spina bifida Qualifiers: Spinal region: unspecified Presence of hydrocephalus: without hydrocephalus Qualified Code(s): Q05.9 - Spina bifida, unspecified (7) Hypertension Qualifiers: Hypertension type: essential hypertension Qualified Code(s): I10 - Essential (primary) hypertension
[2018-04-14] MEDS ORDERED: *HR* Phytonadione 5 MG TABLET PO ONE (11:17)
[2018-04-14] MEDS ORDERED: Lidocaine -MPF 2% 2 ML VIAL ONE (11:34)
[2018-04-14] MEDS ORDERED: *HR* Propofol 200 MG/20 ML VIAL IVP ONE (11:34)
[2018-04-14] MEDS ORDERED: Propofol 500 MG/50 ML INFUS..BTL ONE (11:34)
--- NOTE | 2018-04-14 13:03 | Anesthesia Evaluation PreOp ---
Date of Encounter: 04/14/18 Time of Encounter: 13:01 - Past History Planned Operation: EGD (nausea/vomiting) Cardiac History: HTN, Other (hx DVT, PE (currently anticoagulated)) Pulmonary History: Other (hx PE) TERMITE CONTROL REPRESENTATIVE History: Other (spina bifida (neurolgical impairment limited to bowel and bladder function)) Other Medical History: Renal (decreased function right kidney) Anesthesia History: Problems (PONV) Alcohol Use: none Drug use: none Medications and Allergies Gabapentin [Neurontin] 300 mg PO TID 09/03/15 [History] Diphenoxylate/Atropine [Lomotil 2.5 mg/0.025 mg] 1 tab PO QID PRN 04/12/18 [History] Ibuprofen [Motrin] 800 mg PO TID 04/12/18 [History] Lotrel 5-40 mg Capsule 1 cap PO DAILY 04/12/18 [History] Methocarbamol [Robaxin] 750 mg PO TID PRN 04/12/18 [History] Warfarin [Coumadin] 2.5 mg PO 1800 04/12/18 [History] Allergy/AdvReac Type Severity Reaction Status Date / Time Hydromorphone [From Dilaudid] AdvReac Vomiting Verified 09/03/15 15:27 Sulfa (Sulfonamide AdvReac Nausea Verified 09/03/15 15:27 Antibiotics) - Meds/Allergy Pre-op Review Medications Reviewed: Yes Allergies Reviewed: Yes Beta Blockers on Current Med List: No Anesthesia Results - Labs 04/14/18 05:11 04/14/18 05:11 Anesthesia Exam Last Vital Signs Temp 97.9 F 04/14/18 12:40 Pulse 83 04/14/18 12:40 Resp 18 04/14/18 12:40 BP 150/64 04/14/18 12:40 Pulse Ox 93 04/14/18 12:40 Weight: 86 kg NPO (# of Hours): > 8 hrs - HEENT Pupil (Motor): Pupils equal, EOMI Mallampati: III Teeth: Normal Oral Opening: Greater than 3 - TERMITE CONTROL REPRESENTATIVE LOC: Oriented - Cardiac Rhythm: Regular Murmur: None - Pulmonary Breath Sounds: bilateral Clear Respiratory Effort: Symmetrical Anesthesia Assess/Plan ASA Score: 3 Modified Carey Scale for Level of Consciousness: Cooperative, oriented, and tranquil Anesthetic Plan: MAC Monitoring Plan: Standard Monitors Recovery Plan: PACU
--- NOTE | 2018-04-14 13:22 | Anesthesia Evaluation Post Op ---
Date of Encounter: 04/14/18 Time of Encounter: 13:21 - Vital Signs Vital Signs: Last Vital Signs Temp 97.9 F 04/14/18 12:40 Pulse 83 04/14/18 12:40 Resp 18 04/14/18 12:40 BP 150/64 04/14/18 12:40 Pulse Ox 93 04/14/18 12:40 - Lungs Lungs: Clear Ascult./Percussion - Airway Airway: Non-obstructed - Cardiovascular Regular Rate - Mental Status Mental Status: Alert & Oriented, Answers Appropriately - Pain Pain Scale: 2 - Nausea Vomiting Nausea Vomiting: Not Present - Hydration Hydration: Tolerates oral liquids - Discharge PostOp Status: Discharge Patient to home
[2018-04-14] MEDS: Acetaminophen 325 MG TABLET PO PRN (23:22)
[2018-04-15 03:22] LABS: Basophils % 0.4 %; Eosinophils # 0.3 K/mcL (0.0-0.6); Eosinophils % 3.8 %; Hematocrit 37.3 % (35.3-44.9); Hemoglobin 12.2 g/dL (11.5-15.4); Immature Granulocytes % 0.1 % (0-4); Lymphocytes # 1.2 K/mcL (0.6-4.6); Mean Corpuscular HGB Conc 32.7 g/dL (31.6-35.5); Mean Corpuscular Hemoglobin 29.5 pg (28.0-33.3); Mean Corpuscular Volume 90.1 fL (83.0-100.0); Mean Platelet Volume 10.2 fL (9.4-12.4); Monocytes # 0.6 K/mcL (0.0-1.3); Monocytes % 8.6 %; Neutrophils # 4.7 K/mcL (1.6-8.9); Platelet Count 196 K/mcL (140-400); Red Blood Count 4.14 M/mcL (3.82-4.97); Red Cell Distribution Width 13.3 % (11.5-14.5); Segmented Neutrophils % 69.1 %
[2018-04-15 03:29] LABS: INR 1.7; Prothrombin Time 19.4 Seconds (9.4-12.1)
[2018-04-15 03:41] LABS: BUN/Creatinine Ratio 17 (6-26); Blood Urea Nitrogen 10 mg/dL (8-23); Calcium 8.8 mg/dL (8.6-10.3); Carbon Dioxide 24 mEq/L (23-29); Chloride 108 mEq/L (98-107); Glucose 117 mg/dL (70-105); Osmolality,Calculated 288 (280-300); Potassium 3.7 mEq/L (3.5-5.1); Sodium 139 mEq/L (136-145); eGFR For Non-African Americans > 60 (> 60)
[2018-04-15] MEDS: Gabapentin 300 MG CAPSULE PO SCH ×3 (08:50→21:32)
[2018-04-15] MEDS: amLODIPine 5 MG TABLET PO SCH (08:50)
[2018-04-15] MEDS: cefTRIAXone 1,000 MG in Water for inj. (sterile) 20 ML 10 ML IVP SCH (08:51)
[2018-04-15] MEDS: Lisinopril 20 MG TABLET PO SCH (08:51)
[2018-04-15] MEDS: Acetaminophen 325 MG TABLET PO PRN ×3 (08:55→23:59)
--- NOTE | 2018-04-15 10:46 | Discharge Summary ---
- NOTES TO OUTPATIENT PROVIDER Notes to Outpatient Provider: Follow up with [facility] on Thursday. Orders not resulted at time of discharge: Pending orders 04/16/18 04:00 CMP [Comprehensive Metabolic Panel] AM 0400 Complete Blood Count [HEME] AM 0400 Date of Encounter: 04/15/18 Time of Encounter: 08:33 - Discharge Diagnosis (1) Nausea & vomiting Priority: Primary Status: Acute Qualifiers: Vomiting type: unspecified Vomiting Intractability: non-intractable Qualified Code(s): R11.2 - Nausea with vomiting, unspecified (2) Urinary tract infection Priority: Secondary Status: Chronic Qualifiers: Urinary tract infection type: acute cystitis Hematuria presence: without hematuria Qualified Code(s): N30.00 - Acute cystitis without hematuria (3) Supratherapeutic INR Priority: Secondary Status: Acute (4) Abnormal computed tomography of abdomen and pelvis Priority: Secondary Status: Acute (5) History of pulmonary embolism Priority: Secondary Status: Chronic (6) Spina bifida Priority: Secondary Status: Chronic Qualifiers: Spinal region: unspecified Presence of hydrocephalus: without hydrocephalus Qualified Code(s): Q05.9 - Spina bifida, unspecified (7) Hypertension Priority: Secondary Status: Chronic Qualifiers: Hypertension type: essential hypertension Qualified Code(s): I10 - Essential (primary) hypertension (8) Hypokalemia Priority: Secondary Status: Acute Hospital course: Ms. Oates is a 67yo F with a PMH of htn, neuropathy, chronic uti, spina bifida, and neurogenic bladder with urostomy in place on the right side of abdomen. She presented to [facility] ER and was transferred here for c/o nausea and vomiting since 04/08 -states that she had abd pain associated with dry heaving - had poor PO intake, was unable to keep anything down Of note the pt has a hx of spina bifida and had sx for neurogenic bladder -follows up with Dr Palomino outpt and has [facility] apt on Thursday - urology saw the pt while at [facility] and said no urgent intervention was required She was treated with Rocephin x 4 days and will be d/c with Keflex 500mg PO BID x 3 days for a total of 7 days of treatment. On presentation the pt had a supratheraputic INR INR was 3.3 , PT 37.7 Coumadin was held and the INR subsequently decreased to 2.5 --> 2.1 and then 1.7 - on discharge, the pt can resume her Coumadin and get a PT/INR in 3 days at an [facility] - follow up with Dr. Son in 1 wk Today the pt has no new concerns. She denies any abd pain, N/V/D, chest pain or SOB. She is tolerating diet and keeping food down. She is tolerating PO intake. The pt is stable for discharge. Discharge discussed with: patient Time spent discussing smoking cessation with patient: 3 to 10 minutes - Time Spent with Patient Total time spent providing and/or coordinating discharge services: Less than 30 minutes - Discharge Medications Prescriptions: amLODIPine [Norvasc] 5 mg PO DAILY 30 Days #30 tablet cephALEXin [Keflex] 500 mg PO BID 3 Days #6 capsule Lisinopril [Zestril] 40 mg PO DAILY 30 Days #30 tablet Home Medications: Gabapentin [Neurontin] 300 mg PO TID 09/03/15 [History] Diphenoxylate/Atropine [Lomotil 2.5 mg/0.025 mg] 1 tab PO QID PRN 04/12/18 [History] Ibuprofen [Motrin] 800 mg PO TID 04/12/18 [History] Lotrel 5-40 mg Capsule 1 cap PO DAILY 04/12/18 [History] Methocarbamol [Robaxin] 750 mg PO TID PRN 04/12/18 [History] Warfarin [Coumadin] 2.5 mg PO 1800 04/12/18 [History] Lisinopril [Zestril] 40 mg PO DAILY 30 Days #30 tablet 04/15/18 [Rx] amLODIPine [Norvasc] 5 mg PO DAILY 30 Days #30 tablet 04/15/18 [Rx] cephALEXin [Keflex] 500 mg PO BID 3 Days #6 capsule 04/15/18 [Rx] Allergies/Adverse Reactions: Allergy/AdvReac Type Severity Reaction Status Date / Time Hydromorphone [From Dilaudid] AdvReac Vomiting Verified 09/03/15 15:27 Sulfa (Sulfonamide AdvReac Nausea Verified 09/03/15 15:27 Antibiotics) Date of admission: 04/13/18 18:51 Primary care physician: Cecil Cancino DO Consults: 04/11/18 13:48 Consult to Urology [CONS] Routine Consulting Provider: Urology [facility] Reason for Consult: Follows with Dr Palomino. Has urostomy. Transferred from [facility] for nausea/vomiting. Abnormal CT results at [facility]. Spoke with Dr Cobos, Dr Palomino will see patient tomorrow. Call Completed: Yes 04/12/18 09:03 Consult to Gastroenterology [CONS] Routine Consulting Provider: Gastroenterology [facility] Reason for Consult: nausea and vomitting since ct of abd suggests pancreatitis Time Notified: 09:04 Call Completed: No Discharging clinician: El Mcrae Anticipated date of discharge: 04/15/18 - Constitutional Vitals: Temp Pulse Resp BP Pulse Ox 97.8 F 81 16 138/77 96 04/15/18 07:12 04/15/18 07:12 04/15/18 07:12 04/15/18 07:12 04/15/18 07:12 Exam: General: Alert and oriented. HEENT: Normocephalic atraumatic , mucous membranes moist Cardiovascular: Normal S1 & S2, no rubs, murmurs or gallops. No JVD. Pulse regular. Lungs:Normal breath sounds, no wheezes or crackles. Abdomen:Soft, non-tender, no rigidity. Urostomy on the right abdomen. Extremities: No deformity, no edema or tenderness, no joint swelling or club quinn. Compression stockings to bilateral lower extremities. Skin: Normal color, no rash, no lesions. - Patient Status Disposition: Home, Self-Care Condition: Good Functional capacity at discharge: independent ambulation Overall status at discharge: patient is back to baseline - Discharge Instructions Follow Up With: Cecil Cancino DO [Primary Care Provider] - - Diet and Activity Activity: increase activity as tolerated Diet: advance to your usual diet - VTE Reasons for not Prescribing Prophylaxis: Not indicated-Anticoagulated or INR therapeutic
[2018-04-15] MEDS ORDERED: Gadolinium Contrast Agent (WT Based) IV PRN (11:38)
--- NOTE | 2018-04-15 11:43 | Internal Med Progress Note ---
<El Mcrae S - Last Filed: 04/15/18 11:40> Hospitalist Progress Note - Encounter Date of Encounter: 04/15/18 Time of Encounter: 11:41 - Subjective Interval History: Pt presented to [facility] and was transferred here for c/o nausea and vomiting since 04/08 -states that she had abd pain associated with dry heaving - had poor PO intake, was unable to keep anything down Of note the pt has a hx of spina bifida and had sx for neurogenic bladder -follows up with Dr Palomino outpt and has [facility] apt on Thursday Today the pt has no new concerns. She is tolerating CLD. NO V/D overnight. No abd pain, cp, sob. EGD yesterday well tolerated. - Exam Vitals: Temp Pulse Resp BP Pulse Ox 98.1 F 84 16 142/84 91 04/15/18 10:34 04/15/18 10:34 04/15/18 10:34 04/15/18 10:34 04/15/18 10:34 Exam: General: Alert and oriented. HEENT: Normocephalic atraumatic , mucous membranes moist Cardiovascular: Normal S1 & S2, no rubs, murmurs or gallops. No JVD. Pulse regular. Lungs:Normal breath sounds, no wheezes or crackles. Abdomen:Soft, non-tender, no rigidity. Urostomy on the right abdomen. Extremities: No deformity, no edema or tenderness, no joint swelling or clubbing. Compression stockings to bilateral lower extremities. Skin: Normal color, no rash, no lesions. - Assessment and Plan (1) Nausea & vomiting Current Visit: Yes Status: Resolved Assessment and Plan: Pt presented to [facility] ER and was transferred here for c/o nausea and vomiting since 04/08 -states that she had abd pain associated with dry heaving - had poor PO intake, was unable to keep anything down Lipase 7, pancreatitis unlikely CT in December showed stranding within the right upper quadrant adjacent to the pancreatic head and second portion of the duodenum, which could reflect acute pancreatitis versus duodenitis/peptic ulcer disease PT 23.5, INR 2.1 PT 19.4, INR 1.7 Plan: - zofran and phenergan prn nausea - CLD , progress diet as tolerated - discontinued 75cc/hr 0.9% NS - plan to d/c Thursday pending MRCP/MRI - GI consulted, they did EGD yesterday CLD Recommendations: Carafate 1gm QID MRCP today MRI abdomen today (2) Urinary tract infection Current Visit: Yes Status: Chronic Assessment and Plan: Suspected acute on chronic UTI UA showed leukocyte esterase, (+) nitrites, (+) blood, TNTC WBC, 15-30 RBC Plan: - continue rocephin day 4 - urine cx pending - dispo: d/c thursday pending mrcp/mri (3) Supratherapeutic INR Current Visit: Yes Status: Resolved Assessment and Plan: PT 37.7, INR 3.3 on admission 04/14: INR 2.1, PT 23.5 04/15: INR 1.7, PT 19.4 Plan: - coumadin held - resume coumadin on d/c with follow up pt in 3days (4) Abnormal computed tomography of abdomen and pelvis Current Visit: Yes Status: Acute Assessment and Plan: CT abdomen/pelvis from [facility] showed - possible pancreatitis, pt denies abd pain and lipase is 7 - bilat hydronephrosis , 2mm ureteral stones on right side and 2cm right renal cyst CT 12/2017 - showed bilat nephrolithiasis - single 3mm right ureteral stone - RLQ parastomal hernia Plan: - urology following, no urgent intervention required - pt has urology outpt follow up at [facility] on Thursday (5) History of pulmonary embolism Current Visit: No Status: Chronic Assessment and Plan: Chronic On coumadin (6) Spina bifida Current Visit: No Status: Chronic Assessment and Plan: Chronic (7) Hypertension Current Visit: No Status: Chronic Assessment and Plan: On lotrel BP 142/84 (8) Hypokalemia Current Visit: Yes Status: Resolved Assessment and Plan: Potassium 3.1 on admission, likely secondary to vomiting - replaced with PO K chloride - check electrolytes in AM, was 3.7 today - Time Spent with Patient Total time spent is greater than 50% in coordination of care (as documented) at patient's floor/unit and/or counseling patient: less than 15 minutes Plan of Care Discussed with: patient Internal Medicine: Result - Labs CBC & Chem 7: 04/15/18 03:12 04/15/18 03:12 Labs: Short CBC 04/15/18 Range/Units 03:12 WBC 6.9 (4.3-11.1) K/mcL Hgb 12.2 (11.5-15.4) g/dL Hct 37.3 (35.3-44.9) % Plt Count 196 (140-400) K/mcL Neutrophils # 4.7 (1.6-8.9) K/mcL BMP 04/15/18 03:12 Sodium 139 Potassium 3.7 Chloride 108 H Carbon Dioxide 24 BUN 10 Creatinine 0.58 L Glucose 117 H Calcium 8.8 - ABG Interpretation ABG results: PT/INR, D-dimer PT 19.4 Seconds (9.4-12.1) H 04/15/18 03:12 - VTE Reasons for not Prescribing Prophylaxis: Not indicated-Anticoagulated or INR therapeutic Consult Discharge Plan - Plan Referrals: Cecil Cancino DO [Primary Care Provider] - Prescriptions: amLODIPine [Norvasc] 5 mg PO DAILY 30 Days #30 tablet cephALEXin [Keflex] 500 mg PO BID 3 Days #6 capsule Lisinopril [Zestril] 40 mg PO DAILY 30 Days #30 tablet <Pavel Jj - Last Filed: 04/15/18 16:05> Hospitalist Progress Note - Exam Vitals: Temp Pulse Resp BP Pulse Ox 98.2 F 101 17 136/77 93 04/15/18 14:43 04/15/18 14:43 04/15/18 14:43 04/15/18 14:43 04/15/18 14:43 - Assessment and Plan (1) Nausea & vomiting Current Visit: Yes Status: Resolved (2) Urinary tract infection Current Visit: Yes Status: Chronic (3) Supratherapeutic INR Current Visit: Yes Status: Resolved (4) Abnormal computed tomography of abdomen and pelvis Current Visit: Yes Status: Acute (5) History of pulmonary embolism Current Visit: No Status: Chronic (6) Spina bifida Current Visit: No Status: Chronic (7) Hypertension Current Visit: No Status: Chronic (8) Hypokalemia Current Visit: Yes Status: Resolved - Time Spent with Patient Total time spent is greater than 50% in coordination of care (as documented) at patient's floor/unit and/or counseling patient: Internal Medicine: Result - Labs CBC & Chem 7: 04/15/18 03:12 04/15/18 03:12 Labs: Short CBC 04/15/18 Range/Units 03:12 WBC 6.9 (4.3-11.1) K/mcL Hgb 12.2 (11.5-15.4) g/dL Hct 37.3 (35.3-44.9) % Plt Count 196 (140-400) K/mcL Neutrophils # 4.7 (1.6-8.9) K/mcL BMP 04/15/18 03:12 Sodium 139 Potassium 3.7 Chloride 108 H Carbon Dioxide 24 BUN 10 Creatinine 0.58 L Glucose 117 H Calcium 8.8 - ABG Interpretation ABG results: PT/INR, D-dimer PT 19.4 Seconds (9.4-12.1) H 04/15/18 03:12 - Attending Attestation I examined this patient and my medical decision-making was reviewed with the Resident Physician. I agree with the documented findings, disposition and treatment plan as described except to the extent set forth below. <El Mcrae - Last Filed: 04/15/18 11:40> (1) Nausea & vomiting Qualifiers: Vomiting type: unspecified Vomiting Intractability: non-intractable Qualified Code(s): R11.2 - Nausea with vomiting, unspecified (2) Urinary tract infection Qualifiers: Urinary tract infection type: acute cystitis Hematuria presence: without hematuria Qualified Code(s): N30.00 - Acute cystitis without hematuria (6) Spina bifida Qualifiers: Spinal region: unspecified Presence of hydrocephalus: without hydrocephalus Qualified Code(s): Q05.9 - Spina bifida, unspecified (7) Hypertension Qualifiers: Hypertension type: essential hypertension Qualified Code(s): I10 - Essential (primary) hypertension <Pavel Jj - Last Filed: 04/15/18 16:05> (1) Nausea & vomiting Qualifiers: Vomiting type: unspecified Vomiting Intractability: non-intractable Qualified Code(s): R11.2 - Nausea with vomiting, unspecified (2) Urinary tract infection Qualifiers: Urinary tract infection type: acute cystitis Hematuria presence: without hematuria Qualified Code(s): N30.00 - Acute cystitis without hematuria (6) Spina bifida Qualifiers: Spinal region: unspecified Presence of hydrocephalus: without hydrocephalus Qualified Code(s): Q05.9 - Spina bifida, unspecified (7) Hypertension Qualifiers: Hypertension type: essential hypertension Qualified Code(s): I10 - Essential (primary) hypertension
[2018-04-15] MEDS: Sucralfate 1 GM TABLET PO SCH ×3 (12:10→21:32)
[2018-04-15] MEDS: *HR* Heparin 5,000 UNIT/ML VIAL SQ SCH (21:32)
[2018-04-16] MEDS: *HR* Heparin 5,000 UNIT/ML VIAL SQ SCH ×2 (05:44→15:57)
[2018-04-16 05:59] LABS: Basophils % 0.3 %; Eosinophils # 0.2 K/mcL (0.0-0.6); Eosinophils % 3.6 %; Hematocrit 39.1 % (35.3-44.9); Hemoglobin 12.7 g/dL (11.5-15.4); Immature Granulocytes % 0.2 % (0-4); Lymphocytes # 1.4 K/mcL (0.6-4.6); Lymphocytes % 23.2 %; Mean Corpuscular HGB Conc 32.5 g/dL (31.6-35.5); Mean Corpuscular Hemoglobin 29.1 pg (28.0-33.3); Mean Corpuscular Volume 89.7 fL (83.0-100.0); Mean Platelet Volume 10.3 fL (9.4-12.4); Monocytes # 0.6 K/mcL (0.0-1.3); Monocytes % 9.7 %; Neutrophils # 3.7 K/mcL (1.6-8.9); Platelet Count 200 K/mcL (140-400); Red Blood Count 4.36 M/mcL (3.82-4.97); Red Cell Distribution Width 13.4 % (11.5-14.5)
[2018-04-16 06:19] LABS: Alanine Aminotransferase 7 Units/L (7-52); Albumin 3.7 g/dL (3.5-5.7); Albumin/Globulin Ratio 1.5 (1.1-2.2); Alkaline Phosphatase 98 Units/L (34-104); Aspartate Amino Transferase 11 Units/L (13-39); BUN/Creatinine Ratio 14 (6-26); Bilirubin,Total 0.5 mg/dL (0.3-1.0); Blood Urea Nitrogen 9 mg/dL (8-23); Calcium 9.3 mg/dL (8.6-10.3); Carbon Dioxide 25 mEq/L (23-29); Chloride 107 mEq/L (98-107); Globulin 2.5 g/dL (2.4-3.5); Glucose 128 mg/dL (70-105); Osmolality,Calculated 290 (280-300); Potassium 3.8 mEq/L (3.5-5.1); Sodium 140 mEq/L (136-145); Total Protein 6.2 g/dL (6.4-8.9); eGFR For Non-African Americans > 60 (> 60)
[2018-04-16] MEDS: Sucralfate 1 GM TABLET PO SCH ×2 (07:51→11:38)
[2018-04-16] MEDS: Acetaminophen 325 MG TABLET PO PRN (08:59)
--- NOTE | 2018-04-16 09:24 | Discharge Summary ---
<El Mcrae S - Last Filed: 04/16/18 10:56> - NOTES TO OUTPATIENT PROVIDER Notes to Outpatient Provider: Follow up on PT/INR. Follow up on completion of abx. Follow up with [facility] on Thursday. Date of Encounter: 04/16/18 Time of Encounter: 09:22 - Discharge Diagnosis (1) Nausea & vomiting Priority: Primary Status: Resolved Qualifiers: Vomiting type: unspecified Vomiting Intractability: non-intractable Qualified Code(s): R11.2 - Nausea with vomiting, unspecified (2) Urinary tract infection Priority: Secondary Status: Chronic Qualifiers: Urinary tract infection type: acute cystitis Hematuria presence: without hematuria Qualified Code(s): N30.00 - Acute cystitis without hematuria (3) Supratherapeutic INR Priority: Secondary Status: Resolved (4) Abnormal computed tomography of abdomen and pelvis Priority: Secondary Status: Acute (5) History of pulmonary embolism Priority: Secondary Status: Chronic (6) Spina bifida Priority: Secondary Status: Chronic Qualifiers: Spinal region: unspecified Presence of hydrocephalus: without hydrocephalus Qualified Code(s): Q05.9 - Spina bifida, unspecified (7) Hypertension Priority: Secondary Status: Chronic Qualifiers: Hypertension type: essential hypertension Qualified Code(s): I10 - Essential (primary) hypertension (8) Hypokalemia Priority: Secondary Status: Resolved Hospital course: Ms. Oates is a 67 year old female who presented to [facility] ER and was transferred here for c/o nausea and vomiting since 04/08 -states that she had abd pain associated with dry heaving - had poor PO intake, was unable to keep anything down Of note the pt has a hx of spina bifida and had sx for neurogenic bladder -follows up with Dr Palomino outpt and has [facility] apt on Thursday Pt had a supratherpautic INR on admission - coudmadin was held and INR was reversed EGD was well tolerated - showed gastritis and narrowing of post bulbar area with active duodenal ulceration - recommendations by GI were for carafate and for MRCP MRCP showed hydronephrosis and CBD 9mm without choledocolithiasis, which represented a postcholecystectomy state GI is okay with discharge today Today the pt has no new concerns. She is tolerating diet. NO V/D overnight. No abd pain, cp, sob. - will d/c pt with kephlex for 10more days for a total of 14days tx - carafate QID - resume coumadin on d/c and follow up in 3-4 days for PT/INR - follow up with PCP in 1wk - follow up in [place] on Thursday at [facility] for hydronephrosis Discharge discussed with: patient, nurse Time spent discussing smoking cessation with patient: 3 to 10 minutes - Time Spent with Patient Total time spent providing and/or coordinating discharge services: Less than 30 minutes - Discharge Medications Prescriptions: amLODIPine [Norvasc] 5 mg PO DAILY 30 Days #30 tablet cephALEXin [Keflex] 500 mg PO BID 6 Days #12 capsule Lisinopril [Zestril] 40 mg PO DAILY 30 Days #30 tablet Sucralfate [Carafate] 1 gm PO QIDAC 30 Days #120 tablet Sucralfate [Carafate] 1 gm PO QID 30 Days #120 b Home Medications: Gabapentin [Neurontin] 300 mg PO TID 09/03/15 [History] Diphenoxylate/Atropine [Lomotil 2.5 mg/0.025 mg] 1 tab PO QID PRN 04/12/18 [History] Ibuprofen [Motrin] 800 mg PO TID 04/12/18 [History] Lotrel 5-40 mg Capsule 1 cap PO DAILY 04/12/18 [History] Methocarbamol [Robaxin] 750 mg PO TID PRN 04/12/18 [History] Warfarin [Coumadin] 2.5 mg PO 1800 04/12/18 [History] Lisinopril [Zestril] 40 mg PO DAILY 30 Days #30 tablet 04/15/18 [Rx] amLODIPine [Norvasc] 5 mg PO DAILY 30 Days #30 tablet 04/15/18 [Rx] Sucralfate [Carafate] 1 gm PO QID 30 Days #120 b 04/16/18 [Rx] Sucralfate [Carafate] 1 gm PO QIDAC 30 Days #120 tablet 04/16/18 [Rx] cephALEXin [Keflex] 500 mg PO BID 6 Days #12 capsule 04/16/18 [Rx] Allergies/Adverse Reactions: Allergy/AdvReac Type Severity Reaction Status Date / Time Hydromorphone [From Dilaudid] AdvReac Vomiting Verified 09/03/15 15:27 Sulfa (Sulfonamide AdvReac Nausea Verified 09/03/15 15:27 Antibiotics) Date of admission: 04/13/18 18:51 Primary care physician: Cecil Cancino DO Consults: 04/11/18 13:48 Consult to Urology [CONS] Routine Consulting Provider: Urology Myesha Reason for Consult: Follows with Dr Palomino. Has urostomy. Transferred from [facility] for nausea/vomiting. Abnormal CT results at [facility]. Spoke with Dr Cobos, Dr Palomino will see patient tomorrow. Call Completed: Yes 04/12/18 09:03 Consult to Gastroenterology [CONS] Routine Consulting Provider: Gastroenterology Myesha Reason for Consult: nausea and vomitting since ct of abd suggests pancreatitis Time Notified: 09:04 Call Completed: No Discharging clinician: El Mcrae Anticipated date of discharge: 04/16/18 - Constitutional Vitals: Temp Pulse Resp BP Pulse Ox 98.1 F 84 16 119/73 94 04/16/18 06:38 04/16/18 06:38 04/16/18 06:38 04/16/18 06:38 04/16/18 06:38 Exam: General: Alert and oriented. HEENT: Normocephalic atraumatic , mucous membranes moist Cardiovascular: Normal S1 & S2, no rubs, murmurs or gallops. No JVD. Pulse regular. Lungs:Normal breath sounds, no wheezes or crackles. Abdomen:Soft, non-tender, no rigidity. Urostomy on the right abdomen. Extremities: No deformity, no edema or tenderness, no joint swelling or clubbing. Compression stockings to bilateral lower extremities. Skin: Normal color, no rash, no lesions. - Patient Status Disposition: Home, Self-Care Condition: Good Functional capacity at discharge: independent ambulation Overall status at discharge: patient is progressing back to baseline - Ambulatory Orders Ambulatory Orders: Prothrombin Time INR [COAG] Time Frame: 3 Days, Facility: [facility], Location: Lab - Discharge Instructions Follow Up With: Jamar Soria DO [Partnered Physician] - 04/21/18 11:00 am (Dr. Cancino does not have openings, but will be in the office that day if Dr. Soria needs to consult him. Thank you) - Diet and Activity Activity: increase activity as tolerated Diet: advance to your usual diet - VTE Reasons for not Prescribing Prophylaxis: Not indicated-Anticoagulated or INR therapeutic <Pavel Jj - Last Filed: 04/16/18 18:14> - Discharge Diagnosis (1) Nausea & vomiting Status: Resolved Qualifiers: Vomiting type: unspecified Vomiting Intractability: non-intractable Qualified Code(s): R11.2 - Nausea with vomiting, unspecified (2) Urinary tract infection Status: Chronic Qualifiers: Urinary tract infection type: acute cystitis Hematuria presence: without hematuria Qualified Code(s): N30.00 - Acute cystitis without hematuria (3) Supratherapeutic INR Status: Resolved (4) Abnormal computed tomography of abdomen and pelvis Status: Acute (5) History of pulmonary embolism Status: Chronic (6) Spina bifida Status: Chronic Qualifiers: Spinal region: unspecified Presence of hydrocephalus: without hydrocephalus Qualified Code(s): Q05.9 - Spina bifida, unspecified (7) Hypertension Status: Chronic Qualifiers: Hypertension type: essential hypertension Qualified Code(s): I10 - Essential (primary) hypertension (8) Hypokalemia Status: Resolved Hospital course: Ms. Oates is a 67 year old female - Time Spent with Patient Total time spent providing and/or coordinating discharge services: Date of admission: 04/13/18 18:51 Primary care physician: Cecil Cancino DO Consults: 04/11/18 13:48 Consult to Urology [CONS] Routine Consulting Provider: Urology Myesha Reason for Consult: Follows with Dr Palomino. Has urostomy. Transferred from [facility] for nausea/vomiting. Abnormal CT results at [facility]. Spoke with Dr Cobos, Dr Palomino will see patient tomorrow. Call Completed: Yes 04/12/18 09:03 Consult to Gastroenterology [CONS] Routine Consulting Provider: Gastroenterology Butler Reason for Consult: nausea and vomitting since ct of abd suggests pancreatitis Time Notified: 09:04 Call Completed: No - Constitutional Vitals: Temp Pulse Resp BP Pulse Ox 98.3 F 86 14 120/76 95 04/16/18 11:34 04/16/18 11:34 04/16/18 11:34 04/16/18 11:34 04/16/18 11:34 - Attending Attestation I examined this patient and my medical decision-making was reviewed with the Resident Physician. I agree with the documented findings, disposition and treatment plan as described except to the extent set forth below.
[2018-04-16] MEDS: Gabapentin 300 MG CAPSULE PO SCH (09:51)
[2018-04-16] MEDS: amLODIPine 5 MG TABLET PO SCH (09:52)
[2018-04-16] MEDS: Lisinopril 20 MG TABLET PO SCH (09:52)
[2018-04-16] MEDS: cefTRIAXone 1,000 MG in Water for inj. (sterile) 20 ML 10 ML IVP SCH (09:52)
[2018-04-16 11:35] VITALS: BP 120/76
== END 2018-04-16 15:58 | disposition home or self-care (01) | DRG 381 ==
LOC: 3ANU → SUATTDRO 04-13 18:51
PROVIDERS: ADMIT Pediatrics; ATTEND Student in an Organized Health Care Education/Training Program